=== PATIENT | male | born 1960 | race Caucasian/White ===

== ENCOUNTER 2021-01-28 16:05 | Emergency (ER) | payer OTHER ==
[~2021-01-28] VITALS: Ht 177.8 cm; Wt 91.2 kg
[2021-01-28] MEDS ORDERED: FLONASE16 GM (16:52)
[2021-01-28] MEDS ORDERED: ZYRTEC10 M3 (16:52)
== END 2021-01-28 21:20 | disposition home or self-care (01) ==
LOC: ER 16:05
DX: K52.9 Noninfective gastroenteritis and colitis, unspecified (principal)